=== PATIENT | male | born 1945 | race Caucasian/White ===

== ENCOUNTER 2021-09-19 16:18 | Emergency (ER) | payer MEDICARE, OTHER ==
[2021-09-19 17:46] LABS: BASOPHIL 0.5 % (0-2); EOSINOPHIL 0.4 % (0-7); HCT 42.3 % (42.0-52.0); HGB 14.2 g/dl (13.2-18.0); LYMPHOCYTE 8.3 % (15-48); MCHC 33.6 g/dL (32.0-36.0); MCV 92.4 fL (78.0-100.0); MONOCYTE 2.7 % (0-12); MPV 9.4 fL (6.0-9.5); NEUTROPHIL 87.7 % (41-80); NRBC 0; PLT 207 K/uL (150-400); RBC 4.58 M/uL (4.70-6.00); RDW 13.1 % (11.5-14.0); WBC 10.6 K/uL (4.0-10.5)
[2021-09-19 18:20] LABS: BUN/CREAT RATIO (CALC) 16.1 RATIO; CREATININE 1.43 mg/dL (0.67-1.17); POTASSIUM 3.4 mmol/L (3.5-5.1)
[2021-09-19] MEDS ORDERED: FLOMAX0.4 MG PO (19:50)
[2021-09-19] MEDS ORDERED: NORCO 5-325 TA1 EACH PO (19:50)
== END 2021-09-19 20:10 | disposition home or self-care (01) ==
LOC: FER 16:18
PROVIDERS: Nurse Practitioner Family
DX: N13.2 Hydronephrosis with renal and ureteral calculous obstruction (principal); I10 Essential (primary) hypertension
CPT/HCPCS: 36415; 80048; 85025